=== PATIENT | female | born 1980 | race Caucasian/White ===

== ENCOUNTER 2018-04-02 20:30 | Emergency (ER) | END 2018-04-03 02:20 | disposition home or self-care (01) ==

== ENCOUNTER 2018-05-18 20:08 | Emergency (ER) | END 2018-05-19 01:51 | disposition home or self-care (01) ==

== ENCOUNTER 2019-01-31 16:26 | Emergency (ER) | payer MEDICAID ==
[~2019-01-31] VITALS: Wt 86.5 kg
[~2019-01-31 16:26] MED LIST: ACET325T33 PO; CEPH-443 PO
--- NOTE | 2019-01-31 17:24 | ERD ---
ER Documentation Chief Complaint Chief Complaint PELVIC PAIN SINCE LAST , WITH MURGENCY TO URINATE HPI 38-year-old female, previously healthy, presents the emergency department, complaining of 3 days with pelvic discomfort, associated with lower back pain, increased urinary frequency and dysuria. The patient denies fever, no chills, no nausea or vomiting, no diarrhea or constipation. Last menstrual period 01/20/2019. The patient is G2, P1. ROS All systems reviewed and are negative except as per history of present illness. Medications Home Meds Active Scripts Acetaminophen* (Tylenol*) 325 Mg Tablet, 2 TAB PO Q6 PRN for PAIN AND OR ELEVATED TEMP, #20 TAB Prov:SHANE HER MD 01/31/19 Ibuprofen* (Motrin*) 400 Mg Tab, 400 MG PO Q6H PRN for PAIN AND OR ELEVATED TEMP, #20 TAB Prov:SHANE HER MD 01/31/19 Ciprofloxacin Hcl* (Ciprofloxacin Hcl*) 250 Mg Tablet, 250 MG PO BID for 5 Days, #10 TAB Prov:SHANE HER MD 01/31/19 Acetaminophen* (Tylenol*) 325 Mg Tablet, 2 TAB PO Q6 PRN for PAIN AND OR ELEVATED TEMP, #20 TAB Prov:ABHINAV LANGE PA-C 05/19/18 Cephalexin* (Keflex*) 500 Mg Capsule, 500 MG PO Q8 for 7 Days, #21 CAP Prov:HORTENSIA,JIN 04/03/18 Allergies Allergies: Coded Allergies: No Known Drug Allergy (Verified Allergy, Mild, 04/02/18) PMhx/Soc No personal history of diabetes, asthma or hypertension Surgical history: . Family history: Father with diabetes. Hx Alcohol Use: No Hx Substance Use: No Hx Tobacco Use: No Smoking Status: Never smoker FmHx Family History: diabetes Physical Exam Vitals Vital Signs Date Temp Pulse Resp B/P (MAP) Pulse Ox O2 O2 Flow FiO2 Time Delivery Rate 01/31/19 81 18 111/57 100 Room Air 19:12 (75) 01/31/19 98.1 99 18 145/83 99 16:29 (103) Physical Exam Const: No acute distress Head: Atraumatic Eyes: Normal Conjunctiva ENT: Normal External Ears, Nose and Mouth. Neck: Full range of motion. No meningismus. Resp: Clear to auscultation bilaterally Cardio: Regular rate and rhythm, no murmurs Abd: Soft, non tender, non distended. Normal bowel sounds Skin: No petechiae or rashes Back: No midline or flank tenderness Ext: No cyanosis, or edema Neur: Awake and alert Psych: Normal Mood and Affect Result Diagram: 01/31/19 1737 01/31/19 1737 Results 24 hrs Laboratory Tests Test 01/31/19 17:37 White Blood Count 12.4 10^3/ul Red Blood Count 4.65 10^6/ul Hemoglobin 14.3 g/dl Hematocrit 42.0 % Mean Corpuscular Volume 90.3 fl Mean Corpuscular Hemoglobin 30.8 pg Mean Corpuscular Hemoglobin Concent 34.0 g/dl Red Cell Distribution Width 12.9 % Platelet Count 234 10^3/UL Mean Platelet Volume 10.6 fl Immature Granulocytes % 0.400 % Neutrophils % 77.7 % Lymphocytes % 13.9 % Monocytes % 7.0 % Eosinophils % 0.6 % Basophils % 0.4 % Nucleated Red Blood Cells % 0.0 /100WBC Immature Granulocytes # 0.050 10^3/ul Neutrophils # 9.6 10^3/ul Lymphocytes # 1.7 10^3/ul Monocytes # 0.9 10^3/ul Eosinophils # 0.1 10^3/ul Basophils # 0.1 10^3/ul Nucleated Red Blood Cells # 0.0 10^3/ul Urine Color STRAW Urine Clarity CLEAR Urine pH 6.0 Urine Specific [place] 1.008 Urine Ketones NEGATIVE mg/dL Urine Nitrite NEGATIVE mg/dL Urine Bilirubin NEGATIVE mg/dL Urine Urobilinogen NEGATIVE mg/dL Urine Leukocyte Esterase 2+ Tigist/ul Urine Microscopic RBC 3 /HPF Urine Microscopic WBC 6 /HPF Urine Squamous Epithelial Cells FEW /HPF Urine Bacteria FEW /HPF Urine Hemoglobin 1+ mg/dL Urine Glucose NEGATIVE mg/dL Urine Total Protein NEGATIVE mg/dl Urine Test NEGATIVE Sodium Level 141 mmol/L Potassium Level 3.7 mmol/L Chloride Level 102 mmol/L Carbon Dioxide Level 30 mmol/L Anion Gap 9 Blood Urea Nitrogen 8 mg/dl Creatinine 0.61 mg/dl Est Glomerular Filtrat Rate mL/min > 60 mL/min Glucose Level 126 mg/dl Calcium Level 10.1 mg/dl Procedures/MDM Differential diagnosis include but not limited to: UTI, colitis, gastroenteritis, kidney stones, irritable bowel syndrome, inflammatory bowel syndrome, malabsorption syndrome, cholelithiasis, food intolerance, medication side effect, pancreatitis, diverticulitis, bowel obstruction. Low suspicion for acute abdomen Physical examination and clinical presentation consistent most likely with urinary tract infection. During the ED course the patient remained stable, no new complaints. Results and clinical impression discussed with patient who agrees with manag ement. The patient is stable to be treated outpatient and will be discharged home, some side effects of prescribed medications (headache, rash, nausea, vomiting, diarrhea, drowsiness, habituation, bleeding, hypertension, interactions with other medications) were reviewed. The patient was instructed to follow up with the primary care provider in the next 48h. If symptoms persist, worsen or new symptoms develop, then patient should return to the ED immediately. Instructions explained and given directly by me to the patient with acknowledgment and demonstrated understanding. Disclaimer: Inadvertent spelling and grammatical errors are likely due to EHR/dictation software use and do not reflect on the overall quality of patient care. Also, please note that the electronic time recorded on this note does not necessarily reflect the actual time of the patient encounter. Departure Diagnosis: Primary Impression: UTI (urinary tract infection) Condition: Stable Additional Instructions: Muchas omkar por [facility] para christiansen servicio. Esperamos que en christiansen visita a la jason de emergencia christiansen problema medico haya sido solucionado y que se sienta mucho mejor. Para estar seguros que christiansen mejoria sigue en proceso, le pedimos el favor de hacer ligia ángel de seguimiento medico con christiansen doctor primario en los proximos 2-4 harper. Lleve con usted estos documentos y las medicinas recetadas. Si yaritza sintomas empeoran, NO SE ESPERE, por favor regrese a jason de emergencia I NMEDIATAMENTE. En ashly que usted no tenga un mdico de atencin primaria: Llame al mdico o clnica comunitaria de referencia que aparece abajo stephanie las horas de consultorio para hacer ligia ángel para que le vean. CLINICAS: [facility] [phone] [address] [facility] [phone] [address] [facility] [phone] [address] [facility] [phone] [facility] [phone] [address] [facility]. [phone] SHANE RIVAS MD January 31, 2019 17:24
[2019-01-31] MEDS ORDERED: ACET325T33 PO (18:54)
[2019-01-31] MEDS ORDERED: IBUP-1561 PO (18:54)
[2019-01-31] MEDS ORDERED: CIPR-193 PO (18:54)
[2019-01-31 19:12] VITALS: BP 111/57; PULSE 81; RESP 18
== END 2019-01-31 19:14 | disposition home or self-care (01) ==
LOC: FTE 16:26
DX: N39.0 Urinary tract infection, site not specified (principal)
CPT/HCPCS: 36415; 80048; 81001; 84703; 85025; Z7502; 99283

== ENCOUNTER 2019-04-01 14:16 | Emergency (ER) | payer MEDICAID ==
[~2019-04-01] VITALS: Ht 162.6 cm; Wt 81.2 kg
[~2019-04-01 14:16] MED LIST changes: +CIPR-193 PO; +IBUP-1561 PO
[2019-04-01 14:18] VITALS: BP 132/76; PULSE 67; RESP 18; Ht 162.6 cm; Wt 81.2 kg
[2019-04-01] MEDS ORDERED: ACET500C5 PO (16:14)
--- NOTE | 2019-04-01 16:18 | ERD ---
ER Documentation Chief Complaint Chief Complaint lmp 02/15 with spotting today HPI 38-year-old female presents with some vaginal bleeding and cramping starting today. Her last menstrual Was approximately 7 weeks ago. She is a G3 para 1. She denies fevers, vomiting, right or left abdominal pain. Mild suprapubic cramping. She has received care but is uncertain of the name of her clinic or provider. ROS All systems reviewed and are negative except as per history of present illness. Medications Home Meds Active Scripts Acetaminophen* (Tylophen*) 500 Mg Capsule, 1 CAP PO Q6H PRN for PAIN AND OR ELEVATED TEMP, #15 CAP Prov:JOANN LEAL MD 04/01/19 Acetaminophen* (Tylenol*) 325 Mg Tablet, 2 TAB PO Q6 PRN for PAIN AND OR ELEVATE D TEMP, #20 TAB Prov:SHANE HER MD 01/31/19 Ibuprofen* (Motrin*) 400 Mg Tab, 400 MG PO Q6H PRN for PAIN AND OR ELEVATED TEMP, #20 TAB Prov:SHANE HER MD 01/31/19 Ciprofloxacin Hcl* (Ciprofloxacin Hcl*) 250 Mg Tablet, 250 MG PO BID for 5 Days, #10 TAB Prov:SHANE HER MD 01/31/19 Acetaminophen* (Tylenol*) 325 Mg Tablet, 2 TAB PO Q6 PRN for PAIN AND OR ELEVATED TEMP, #20 TAB Prov:ABHINAV LANGE PA-C 05/19/18 Cephalexin* (Keflex*) 500 Mg Capsule, 500 MG PO Q8 for 7 Days, #21 CAP Prov:JIN BAZAN 04/03/18 Allergies Allergies: Coded Allergies: No Known Drug Allergy (Verified Allergy, Mild, 04/02/18) PMhx/Soc Hx Alcohol Use: No Hx Substance Use: No Hx Tobacco Use: No Smoking Status: Never smoker FmHx Family History: No diabetes, No coronary disease, No other Physical Exam Vitals Vital Signs Date Temp Pulse Resp B/P (MAP) Pulse Ox O2 O2 Flow FiO2 Time Delivery Rate 04/01/19 98.7 67 18 132/76 99 14:18 (94) Physical Exam Const: No acute distress Head: Atraumatic Eyes: Normal Conjunctiva ENT: Normal External Ears, Nose and Mouth. Neck: Full range of motion. No meningismus. Resp: Clear to auscultation bilaterally Cardio: Regular rate and rhythm, no murmurs Abd: Soft, non tender, non distended. Normal bowel sounds Skin: No petechiae or rashes Back: No midline or flank tenderness Ext: No cyanosis, or edema Neur: Awake and alert Psych: Normal Mood and Affect Result Diagram: 04/01/19 1440 Results 24 hrs Laboratory Tests Test 04/01/19 14:40 04/01/19 15:13 White Blood Count 8.6 10^3/ul Red Blood Count 4.52 10^6/ul Hemoglobin 14.1 g/dl Hematocrit 40.7 % Mean Corpuscular Volume 90.0 fl Mean Corpuscular Hemoglobin 31.2 pg Mean Corpuscular Hemoglobin Concent 34.6 g/dl Red Cell Distribution Width 13.9 % Platelet Count 210 10^3/UL Mean Platelet Volume 10.8 fl Immature Granulocytes % 0.300 % Neutrophils % 59.3 % Lymphocytes % 23.5 % Monocytes % 14.4 % Eosinophils % 2.2 % Basophils % 0.3 % Nucleated Red Blood Cells % 0.0 /100WBC Immature Granulocytes # 0.030 10^3/ul Neutrophils # 5.1 10^3/ul Lymphocytes # 2.0 10^3/ul Monocytes # 1.2 10^3/ul Eosinophils # 0.2 10^3/ul Basophils # 0.0 10^3/ul Nucleated Red Blood Cells # 0.0 10^3/ul Beta HCG, Quantitative 53869.0 mIU/ml Urine Color YELLOW Urine Clarity SLIGHTLY CLOUDY Urine pH 6.0 Urine Specific [place] 1.006 Urine Ketones NEGATIVE mg/dL Urine Nitrite NEGATIVE mg/dL Urine Bilirubin NEGATIVE mg/dL Urine Urobilinogen NEGATIVE mg/dL Urine Leukocyte Esterase NEGATIVE Tigist/ul Urine Microscopic RBC 69 /HPF Urine Microscopic WBC 14 /HPF Urine Squamous Epithelial Cells MODERATE /HPF Urine Bacteria FEW /HPF Urine Hemoglobin 3+ mg/dL Urine Glucose NEGATIVE mg/dL Urine Total Protein NEGATIVE mg/dl Procedures/MDM Quantitative hCG greater than 56,000. Patient is Rh+. Urine shows white blood cells but greater red blood cells as well as moderate epithelial cells. Suspect contamination or dirty catch. PROCEDURE: US OB. CLINICAL INDICATION: Vaginal bleeding TECHNIQUE: Transabdominal and endovaginal views of the pelvis are available for review. COMPARISON: No prior studies are available for comparison. FINDINGS: There is a single intrauterine gestation with the crown-rump length measuring 0.7 cm, corresponding to a gestational age of 6 weeks and 5 days. The heart rate is noted at 114 bpm. The right ovary was not seen. The left ovary measures 4.5 x 3.2 x 4.1 cm. There is a 3 cm simple cyst in the left ovary. There is no free fluid. RPTAT: AA IMPRESSION: Single live intrauterine with an estimated gestational age of 6 weeks and 5 days, based on ultrasound measurements. MAR based on ultrasound measurements is 11/20/19. bradycardia. Close follow-up is recommended. Small simple cyst in the left ovary. Right ovary not visualized. .Bryan Saini MD, MD Date Time Electronically viewed and signed by .Bryan Saini MD, on 04/01/2019 15:29 .S/ Patient presents with vaginal bleeding of early . This is visible intrauterine although with noted bradycardia. Findings may suggest early miscarriage although close follow-up recommended. Patient shows no signs to suggest ectopic , surgical abdomen, sepsis, additional complications. She will be discharged home with recommendations for fluids, Tylenol, primary care follow-up this week, and sooner follow-up or return precautions for worsening pain, worsening bleeding, fevers, new worsening symptoms. The patient was stable with no new complaints during the ER course. Clinically, there is no current evidence to suggest meningitis, sepsis, acute abdomen, pneumonia, stroke, acute coronary syndrome, pulmonary embolism, aortic dissection or any other emergent condition appearing to require further evaluation or hospitalization. Patient counseled regarding my diagnostic impression and care plan. Prior to discharge all questions answered. Pt agrees with treatment plan and understands strict return precautions. Pt is instructed to follow up with primary care provider within 24-48 hours. Precautionary instructions provided including instructions to return to the ER if not improving or for any worsening or changing symptoms or concerns. Disclaimer: Inadvertent spelling and grammatical errors are likely due to EHR/dictation software use and do not reflect on the overall quality of patient care. Also, please note that the electronic time recorded on this note does not necessarily reflect the actual time of the patient encounter. Departure Diagnosis: Primary Impression: Vaginal bleeding in patient at less than 20 weeks ges... Condition: Stable Patient Instructions: Bleeding During Early Referrals: [facility] (PCP) Additional Instructions: PUEDE BERT UN EMBARAZO JACE POSIBLEMENTE UN ABORTO TEMPRANO. CHEQUE CON MARINA DOCTOR ESTA SEMANA. REGRESA MAS PRONTO PARA MAS BALWINDER, SYDNEE CARRASCO KEVIN N. MD Apr 01, 2019 16:18
== END 2019-04-01 16:24 | disposition home or self-care (01) ==
LOC: FTE 14:16
DX: O20.9 Hemorrhage in early pregnancy, unspecified (principal); Z3A.01 Less than 8 weeks gestation of pregnancy
CPT/HCPCS: 36415; 76801; 76817; 81001; 84702; 85025; 86900; 86901; Z7502